=== PATIENT | female | born 1950 | race African-American/Black ===

== ENCOUNTER 2019-09-07 18:12 | Emergency (ER) | payer OTHER ==
[~2019-09-07 18:12] MED LIST: Iopamidol 370 76% 100 ML VIAL ONE
[2019-09-07] MEDS ORDERED: Acetaminophen 500 MG TAB ONE (19:07)
[2019-09-07] MEDS ORDERED: Fentanyl 100 MCG/2 ML VIAL ONE (19:07)
[2019-09-07] MEDS ORDERED: Piperacillin/Tazobactam 4.5 GM VIAL ONE (19:08)
[2019-09-07] MEDS ORDERED: Sodium Chloride 0.9% 100 ML ONE (19:08)
[2019-09-07 19:16] LABS: Hemoglobin 11.5 g/dL (12.0-16.0); Mean Corpuscular HGB CONC 30.8 g/dL (32.0-36.0); Mean Corpuscular Volume 81.2 fL (78.0-98.0); Mean Platelet Volume 13.5 fL (7.4-10.4); Platelet Count 158 thou/uL (130-400); RBC Distribution Width 14.1 % (11.5-14.5); White Blood Cell (WBC) Count 9.6 thou/uL (4.8-10.8)
[2019-09-07 19:23] LABS: ALT (SGPT) 14 U/L (8-55); AST (SGOT) 18 U/L (5-34); Albumin 4.5 g/dL (3.4-4.8); Alkaline Phosphatase 74 U/L (40-110); Anion Gap 18 mmol/L (10-20); BUN (Urea Nitrogen) 12 mg/dL (9.8-20.1); Bilirubin, Total 0.4 mg/dL (0.2-1.2); Calc. Creatinine Clearance 0 mL/min (70-130); Calcium 10.5 mg/dL (7.8-10.44); Carbon Dioxide 23 mmol/L (23-31); Chloride 99 mmol/L (98-107); Estimated GFR-MDRD 82; Globulin 3.5 g/dL (2.4-3.5); Glucose 134 mg/dL (83-110); Lipase 26 U/L (8-78); Potassium 3.3 mmol/L (3.5-5.1); Sodium 137 mmol/L (136-145)
[2019-09-07 19:32] LABS: Lymphocytes 18 % (21-51); MDiff Complete? YES; Monocytes 6 % (0-10); Neutrophil 76 % (42-75); Platelet Morphology Comment Appears Adequate
[2019-09-07 20:52] LABS: Bilirubin Negative (Negative); Blood, Urine Small (Negative); Clarity Clear (Clear); Glucose, Urine (Dipstick) Negative (Negative); Leukocyte Small (Negative); Nitrite Negative (Negative); Protein, Urine (Dipstick) Negative (Neg-Trace); Urobilinogen 0.2 mg/dL (Less than 2)
[2019-09-07 21:00] LABS: RBC/HPF 0-3 HPF (0-3); Squamous Epithelial 0-3 HPF (0-3); WBC/HPF 0-3 HPF (0-3)
--- NOTE | 2019-09-08 07:43 | CT ---
CT OF THE ABDOMEN AND PELVIS WITH CONTRAST: DATE: 09/07/2019. FINDINGS: Spiral CT of the abdomen and pelvis was done to evaluate left lower quadrant pain and fever. The lung bases are clear. The heart is mildly enlarged. The liver, spleen, pancreas, and adrenal gl ands show no space-occupying disease. There has been a prior cholecystectomy. The renal pelves are prominent in size and there may be a mild left UPJ narrowing, but acute hydronephrosis is not suspect ed. There is no ureteral dilation. The aorta is normal in caliber and the mesenteric vessels fill n ormally. There is mild to moderate gaseous distention of colon, especially the right colon that is 5.9 cm wide . Nevertheless, gas was seen throughout the entire portion of the colon and there is no wall thicken ing or inflammatory change around it. Specifically, there is no evidence of diverticulitis. The pro ximal portion of the patient's appendix was borderline large at 8 mm; however, it becomes normal in s ize distally with air seen all the way to the tip. There is absolutely no stranding around it, nor a re there symptoms in this location once I check with the emergency physician. No free air or free fl uid is present. CT of the pelvis shows a generous-sized uterus with no adnexal masses visible. There may be the begi nnings of some calcified uterine fibroids. The urinary bladder is moderately distended. There are n o pelvic masses or inflammatory changes noted. There is some concentric bulging of the L5-S1 disk. Mild spondylolisthesis of the L4 on L5 appears to be due to facet arthritis. 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 A degenerated disk is noted at T12-L1. IMPRESSION: 1. Mild gaseous distention of the colon throughout without signs of overt obstruction. No wall thic kening or inflammatory changes. 2. Proximal appendix 8 mm wide, but air is seen all of the way to the tip and there is no inflammato ry change around it, nor do the symptoms point in this direction. 3. No evidence of diverticulitis. 4. No acute findings to explain the patient's left lower quadrant pain or fever. Preliminary results discussed with Dr. Valladares at 1957 on 09/07/2019. CODE CR POS: HOME
== END 2019-09-07 21:36 | disposition home or self-care (01) ==
LOC: BURERS 18:12
DX: N10 Acute pyelonephritis (principal); I10 Essential (primary) hypertension; Z79.899 Other long term (current) drug therapy
CPT/HCPCS: 74177; 80053; 81003; 81015; 83605; 83690; 85025; 87040; 87086; 94760; 96365; 96375; J2543; J3010; J3490; Q9967

== ENCOUNTER 2019-11-02 12:24 | Emergency (ER) | payer MEDICARE ==
[2019-11-02] MEDS ORDERED: HYDROcodone/Acetaminophen 10/325 mg Tablet ONE (12:45)
[2019-11-02] MEDS ORDERED: Ibuprofen 800 MG TAB ONE (12:45)
--- NOTE | 2019-11-02 19:55 | RAD ---
RIGHT KNEE THREE VIEWS: Date: 11-02-2019 FINDINGS: There is a large joint effusion. No fracture was appreciated. There is severe medial joint space narr owing and osteophytes. The articular portion of the medial femoral condyle is quite irregular. There is no dislocation of the patella. IMPRESSION: 1. Severe osteoarthritis, particularly in the medial compartment. 2. Large joint effusion. The possibility of an internal derangement of the knee is raised because of the large joint effusion. I would note that there is a little lucency in the inside portion of the me dial femoral condyle, but I doubt that this is acute. If further imaging is needed, an MRI or CT coul d be useful. POS: HOME
== END 2019-11-02 13:15 | disposition home or self-care (01) ==
LOC: BURERS 12:24
DX: M25.461 Effusion, right knee (principal); M23.91 Unspecified internal derangement of right knee; D64.9 Anemia, unspecified; I10 Essential (primary) hypertension; Z79.899 Other long term (current) drug therapy

== ENCOUNTER 2020-03-18 16:41 | Emergency (ER) | payer MEDICARE | END 2020-03-18 17:26 | disposition home or self-care (01) | LOC: BURERS 16:41 | DX: Z04.1 Encounter for examination and observation following transport accident (principal); I10 Essential (primary) hypertension; D64.9 Anemia, unspecified; F17.220 Nicotine dependence, chewing tobacco, uncomplicated; Z79.899 Other long term (current) drug therapy; V89.2XXA Person injured in unspecified motor-vehicle accident, traffic, initial encounter | CPT/HCPCS: 99282 ==

== ENCOUNTER 2020-06-07 10:41 | Emergency (ER) | payer MEDICARE ==
[2020-06-07 11:17] LABS: #Basophils 0.1 thou/uL (0.0-0.2); #Lymphocytes 1.2 thou/uL (1.20-3.40); #Monocytes 0.8 thou/uL (0.11-0.59); #Neutrophils 8.4 thou/uL (1.40-6.50); %Basophils 0.5 % (0.0-1.0); %Eosinophils 0.2 % (0.0-10.0); %Lymphocytes 11.4 % (21.0-51.0); %Monocytes 7.7 % (0.0-10.0); %Neutrophils 80.3 % (42.0-75.0); Hemoglobin 12.3 g/dL (12.0-16.0); MDiff Complete? YES; Manual Diff?? NO; Mean Corpuscular HGB CONC 31.2 g/dL (32.0-36.0); Mean Corpuscular Volume 80.1 fL (78.0-98.0); Mean Platelet Volume 11.6 fL (7.4-10.4); Platelet Count 180 thou/uL (130-400); RBC Distribution Width 12.9 % (11.5-14.5); Red Blood Cell (RBC) Count 4.95 mill/uL (4.20-5.40); White Blood Cell (WBC) Count 10.5 thou/uL (4.8-10.8)
[2020-06-07 11:24] LABS: Bilirubin Negative (Negative); Blood, Urine Moderate (Negative); Clarity Slightly Cloudy (Clear); Glucose, Urine (Dipstick) Negative (Negative); Ketone, Urine Negative (Negative); Leukocyte Moderate (Negative); Nitrite Negative (Negative); Protein, Urine (Dipstick) Negative (Neg-Trace); Specific Gravity, Urine 1.015 (1.005-1.030); Urobilinogen 0.2 mg/dL (Less than 2)
[2020-06-07 11:28] LABS: ALT (SGPT) 19 U/L (8-55); AST (SGOT) 17 U/L (5-34); Albumin 4.4 g/dL (3.4-4.8); Alkaline Phosphatase 64 U/L (40-110); Anion Gap 20 mmol/L (10-20); BUN (Urea Nitrogen) 13 mg/dL (9.8-20.1); Bilirubin, Total 0.6 mg/dL (0.2-1.2); Calc. Creatinine Clearance 0 mL/min (70-130); Calcium 10.9 mg/dL (7.8-10.44); Carbon Dioxide 27 mmol/L (23-31); Chloride 93 mmol/L (98-107); Globulin 4.1 g/dL (2.4-3.5); Glucose 122 mg/dL (83-110); Potassium 3.5 mmol/L (3.5-5.1); Protein, Total 8.5 g/dL (5.8-8.1); Sodium 136 mmol/L (136-145)
[2020-06-07 11:29] LABS: Acetaminophen Less than 6.0 mcg/mL (10.0-30.0); Alcohol Less than 10 mg/dL (Less than 10); Salicylate Less than 8.0 mg/dL (15.0-30.0)
[2020-06-07 11:34] LABS: Bacteria/HPF Rare-Few HPF (None Seen); RBC/HPF 0-3 HPF (0-3); Transitional Epithelial 0-3 HPF (None Seen); WBC/HPF 21-50 HPF (0-3)
[2020-06-07 11:40] LABS: Cocaine Metabolite Screen Not Detected (NotDetected); Phencyclidine (PCP) Not Detected (NotDetected); THC/Cannabinoid Screen Not Detected (NotDetected)
[2020-06-07 11:41] LABS: Amphetamine Not Detected (NotDetected); Barbiturates Screen Not Detected (NotDetected); Benzodiazepine Screen Not Detected (NotDetected); Medtox Control Line Valid? VALID (VALID); Methadone Not Detected (NotDetected); Methamphetamine Not Detected (NotDetected); Opiate Screen Not Detected (NotDetected); Oxycodone Screen Not Detected (NotDetected); Tricyclic Screen Not Detected (NotDetected)
[2020-06-07] MEDS ORDERED: Nitrofurantoin Monohyd/M-Cryst 100 MG CAP ONE (11:51)
[2020-06-07] MEDS ORDERED: cefTRIAXone\\ROCEPHIN 1 GM VIAL ONE (11:51)
[2020-06-07] MEDS ORDERED: Ketorolac Tromethamine 30 MG/ML VIAL ONE (12:06)
--- NOTE | 2020-06-07 18:52 | CT ---
CT ABDOMEN PELVIS WITHOUT CONTRAST: Date: 06-07-2020 Comparison: 09-07-2019 FINDINGS: There has been no adverse interval change. The lung bases are clear. There is a small amount of pleur al thickening in the right posterior hemithorax. The aorta is quite tortuous. The liver, spleen, panc reas, adrenal glands, kidneys and abdominal aorta showed no acute findings within the limitations of the noncontrast study. There is no sign of urinary tract calculi or obstruction. There may be a tiny cyst attached to the lower part of the right lobe of the liver, 1 cm in size at most. I doubt its sig nificance. The bowel shows no distention. The appendix is 7 mm wide and has air in it. There is no inflammatory change around it. No free air or free fluid was seen. CT of the pelvis shows no pelvic masses, fluid collections, or inflammatory changes. IMPRESSION: No acute abdominal or pelvic findings. No adverse change since 2019. Preliminary report called to Alba in ER at [id number] on 06-07-2020. POS: HOME
== END 2020-06-07 12:15 | disposition home or self-care (01) ==
LOC: BURERS 10:41
DX: N10 Acute pyelonephritis (principal); Z79.899 Other long term (current) drug therapy; I10 Essential (primary) hypertension; F17.220 Nicotine dependence, chewing tobacco, uncomplicated
CPT/HCPCS: 74176; 80053; 80306; 80307; 81003; 81015; 83605; 84484; 85025; 87086; 93005; 94760; 96374; 96375; J0696; J1885

== ENCOUNTER 2020-09-02 09:29 | Emergency (ER) | payer MEDICARE ==
[2020-09-02] MEDS ORDERED: Ketorolac Tromethamine 30 MG/ML VIAL ONE (09:49)
[2020-09-02] MEDS ORDERED: HYDROcodone/Acetaminophen 10/325 mg Tablet ONE (09:49)
== END 2020-09-02 09:58 | disposition home or self-care (01) ==
LOC: BURERS 09:29
DX: M25.511 Pain in right shoulder (principal); M25.521 Pain in right elbow; M25.562 Pain in left knee; M54.2 Cervicalgia; I10 Essential (primary) hypertension; D64.9 Anemia, unspecified; F17.220 Nicotine dependence, chewing tobacco, uncomplicated
CPT/HCPCS: 96372; 99283; J1885

== ENCOUNTER 2020-10-20 13:46 | Emergency (ER) | payer MEDICARE ==
[2020-10-20 14:41] LABS: Bilirubin Negative (Negative); Blood, Urine Small (Negative); Clarity Cloudy (Clear); Glucose, Urine (Dipstick) Negative (Negative); Ketone, Urine Negative (Negative); Leukocyte Large (Negative); Nitrite Negative (Negative); Protein, Urine (Dipstick) Negative (Neg-Trace); Urobilinogen 0.2 mg/dL (Less than 2)
[2020-10-20 14:43] LABS: Specific Gravity, Urine 1.006 (1.002-1.036)
[2020-10-20 14:46] LABS: Bacteria/HPF 2+ HPF (None Seen); RBC/HPF 0-3 HPF (0-3); Squamous Epithelial 0-3 HPF (0-3)
[2020-10-20] MEDS ORDERED: Sulfameth/Trimethoprim DS 800-160mg TAB ONE (15:18)
== END 2020-10-20 15:20 | disposition home or self-care (01) ==
LOC: BURERS 13:46
DX: N39.0 Urinary tract infection, site not specified (principal); I10 Essential (primary) hypertension; F17.220 Nicotine dependence, chewing tobacco, uncomplicated
CPT/HCPCS: 81003; 81015; 87086; 99283

== ENCOUNTER 2021-06-04 10:50 | Outpatient (CLI) | payer MEDICARE ==
[2021-06-04 12:01] LABS: ALT (SGPT) 33 U/L (8-55); AST (SGOT) 26 U/L (5-34); Albumin 3.8 g/dL (3.4-4.8); Alkaline Phosphatase 75 U/L (40-110); Anion Gap 19 mmol/L (10-20); BUN (Urea Nitrogen) 49 mg/dL (9.8-20.1); Bilirubin, Total 0.3 mg/dL (0.2-1.2); Calc. Creatinine Clearance 0 mL/min (70-130); Calcium 10.2 mg/dL (7.8-10.44); Carbon Dioxide 21 mmol/L (23-31); Cardiac Risk 4.6 (Less than 4.5); Chloride 104 mmol/L (98-107); Cholesterol 161 mg/dl (< 200 Desired); Glucose 98 mg/dL (83-110); HDL Cholesterol 35 mg/dL (>60 Neg Risk); LDL Cholesterol, Calculated 98 mg/dL; Protein, Total 7.8 g/dL (5.8-8.1); Sodium 141 mmol/L (136-145); Triglycerides 142 mg/dL (Less than 150)
[2021-06-04 13:35] LABS: Potassium 2.8 mmol/L (3.5-5.1)
== END 2021-06-04 10:51 | disposition home or self-care (01) ==
LOC: BURRAD 10:50
PROVIDERS: ATTEND Nurse Practitioner Family
DX: I48.0 Paroxysmal atrial fibrillation (principal)
CPT/HCPCS: 36415; 71046; 80053; 80061; 84443

== ENCOUNTER 2021-06-04 14:05 | Emergency (ER) | payer MEDICARE ==
[2021-06-04 15:03] LABS: Hemoglobin 11.3 g/dL (12.0-16.0); Mean Corpuscular HGB CONC 31.3 g/dL (32.0-36.0); Mean Corpuscular Hemoglobin 25.6 pg (27.0-31.0); Mean Corpuscular Volume 81.8 fL (78.0-98.0); Mean Platelet Volume 9.6 fL (7.4-10.4); Platelet Count 272 thou/uL (130-400); RBC Distribution Width 12.9 % (11.5-14.5); Red Blood Cell (RBC) Count 4.41 mill/uL (4.20-5.40); White Blood Cell (WBC) Count 8.3 thou/uL (4.8-10.8)
[2021-06-04 15:24] LABS: ALT (SGPT) 30 U/L (8-55); AST (SGOT) 26 U/L (5-34); Albumin 3.5 g/dL (3.4-4.8); Alkaline Phosphatase 69 U/L (40-110); Anion Gap 18 mmol/L (10-20); BUN (Urea Nitrogen) 49 mg/dL (9.8-20.1); Bilirubin, Total 0.2 mg/dL (0.2-1.2); Calc. Creatinine Clearance 0 mL/min (70-130); Calcium 9.7 mg/dL (7.8-10.44); Carbon Dioxide 21 mmol/L (23-31); Chloride 104 mmol/L (98-107); Globulin 3.7 g/dL (2.4-3.5); Glucose 156 mg/dL (83-110); Protein, Total 7.2 g/dL (5.8-8.1); Sodium 140 mmol/L (136-145)
[2021-06-04 15:49] LABS: Potassium 2.8 mmol/L (3.5-5.1)
[2021-06-04] MEDS ORDERED: Potassium Chloride 20 MEQ/100 ML PREMIX BAG ONE (16:07)
[2021-06-04] MEDS ORDERED: Potassium Chloride 20 MEQ TAB ONE (16:08)
[2021-06-04 16:44] LABS: MDiff Complete? YES
[2021-06-04 16:45] LABS: Band 7 % (5-11); Eosinophils 4 % (0-10); Lymphocytes 16 % (21-51); Monocytes 8 % (0-10); Neutrophil 63 % (42-75); Reactive Lymphocytes 2 % (0-10)
== END 2021-06-04 16:17 | disposition home or self-care (01) ==
LOC: BURERS 14:05
DX: E87.6 Hypokalemia (principal); F17.220 Nicotine dependence, chewing tobacco, uncomplicated; I10 Essential (primary) hypertension; M10.9 Gout, unspecified; D64.9 Anemia, unspecified; Z79.899 Other long term (current) drug therapy; I48.0 Paroxysmal atrial fibrillation
CPT/HCPCS: 36415; 71046; 80053; 80061; 84443; 85025; 99284; J3480

== ENCOUNTER 2022-02-13 09:22 | Outpatient (CLI) | payer MEDICARE ==
[2022-02-13 09:57] LABS: ALT (SGPT) 15 U/L (8-55); AST (SGOT) 21 U/L (5-34); Albumin 4.1 g/dL (3.4-4.8); Alkaline Phosphatase 58 U/L (40-110); Anion Gap 16 mmol/L (10-20); BUN (Urea Nitrogen) 21 mg/dL (9.8-20.1); Bilirubin, Total 0.3 mg/dL (0.2-1.2); Calc. Creatinine Clearance 0 mL/min (70-130); Calcium 9.6 mg/dL (7.8-10.44); Carbon Dioxide 24 mmol/L (23-31); Cardiac Risk 2.8 (Less than 4.5); Chloride 104 mmol/L (98-107); Cholesterol 194 mg/dl (< 200 Desired); Estimated GFR 52; Glucose 88 mg/dL (83-110); HDL Cholesterol 70 mg/dL (>60 Neg Risk); LDL Cholesterol, Calculated 96 mg/dL; Protein, Total 7.1 g/dL (5.8-8.1); Sodium 140 mmol/L (136-145); Triglycerides 141 mg/dL (Less than 150)
== END 2022-02-13 09:23 | disposition home or self-care (01) ==
LOC: BURRAD 09:22
PROVIDERS: ATTEND Internal Medicine Cardiovascular Disease
DX: I48.0 Paroxysmal atrial fibrillation (principal); I10 Essential (primary) hypertension
CPT/HCPCS: 36415; 71046; 80053; 80061; 84443

== ENCOUNTER 2022-03-16 09:31 | Outpatient (CLI) | payer MEDICARE | END 2022-03-16 09:32 | disposition home or self-care (01) | LOC: BURRAD 09:31 | PROVIDERS: ATTEND Nurse Practitioner Family | DX: R93.89 Abnormal findings on diagnostic imaging of other specified body structures (principal); I51.7 Cardiomegaly | CPT/HCPCS: 71046 ==

== ENCOUNTER 2023-03-26 11:06 | Emergency (ER) | payer MEDICARE ==
[2023-03-26] MEDS ORDERED: Acetaminophen/Codeine 30-300mg Tablet ONE (11:27)
== END 2023-03-26 12:19 | disposition home or self-care (01) ==
LOC: BURERS 11:06
DX: S32.502A Unspecified fracture of left pubis, initial encounter for closed fracture (principal); I10 Essential (primary) hypertension; F17.220 Nicotine dependence, chewing tobacco, uncomplicated; W18.39XA Other fall on same level, initial encounter

== ENCOUNTER 2024-04-11 09:28 | Emergency (ER) | payer MEDICARE ==
[2024-04-11] MEDS ORDERED: Colchicine 0.6 MG TAB ONE (10:02)
[2024-04-11] MEDS ORDERED: predniSONE 20 MG TAB ONE (10:03)
[2024-04-11] MEDS ORDERED: Naproxen 500 MG TAB ONE (10:03)
== END 2024-04-11 10:12 | disposition home or self-care (01) ==
LOC: BURERS 09:28
DX: M06.4 Inflammatory polyarthropathy (principal); I10 Essential (primary) hypertension; F17.220 Nicotine dependence, chewing tobacco, uncomplicated; Z79.899 Other long term (current) drug therapy
CPT/HCPCS: 99283; J7512

== ENCOUNTER 2025-02-21 12:51 | Emergency (ER) | payer OTHER ==
[2025-02-21] MEDS ORDERED: Acetaminophen/Codeine 30-300mg Tablet ONE (14:22)
== END 2025-02-21 14:25 | disposition home or self-care (01) ==
LOC: BURERS 12:51
DX: S32.10XA Unspecified fracture of sacrum, initial encounter for closed fracture (principal); I10 Essential (primary) hypertension; Z95.0 Presence of cardiac pacemaker; F17.220 Nicotine dependence, chewing tobacco, uncomplicated; Z79.899 Other long term (current) drug therapy; W18.30XA Fall on same level, unspecified, initial encounter
CPT/HCPCS: 72192